=== PATIENT | male | born 1945 | race Caucasian/White ===

== ENCOUNTER 2024-07-18 11:11 | Emergency (ER) | payer OTHER, MEDICARE ==
[~2024-07-18] VITALS: Ht 182.9 cm; Wt 90.9 kg
--- NOTE | 2024-07-18 11:31 | ED.PDOC ---
SOB-HPI HPI Comments 78-year-old male presents with a chief complaint of SOB. Per EMS, patient normally saturates in the high 80s on room air, but his new home health nurse "panicked" and called 911. Patient states that he feels fine and at his baseline. Patient was sating at 89% on room air. Patient was given a dual nebulizer treatment en route. Patient is bed bound and has a colostomy bag in place. Patient is alert and oriented x 4. No other symptoms or modifying factors present at this time. pt is DNR and feels fine, but his daughter agrees to have him checked since the home health nurse called 911 Chief Complaint: Shortness of Breath Time Seen by MD: 11:16 Reviewed notes: Medications, Allergies Information Source: Patient, Emergency Med Personnel Mode of Arrival: EMS Severity: Moderate Timing: Hours Duration: Since onset Context: At Rest PE Risk Factors: None History of: Other (LUNG CANCER) Prehospital treatment: Breathing Tx, Ordnance Engineer, Oxygen Modifying Factors: Nothing Associated Signs and Symptoms: None Past Medical History PAST MEDICAL HISTORY: Cancer Surgical History (Other): COLOSTOMY Family History Family History: Reviewed,noncontributory to illness Social History Smoker: Non-Smoker Alcohol: Denies ETOH Use Drugs: Denies Drug Use Lives In: Home Constitutional: denies: chills, diaphoresis, fatigue, fever, malaise, sweats, weakness, others EENTM: denies: blurred vision, double vision, ear bleeding, ear discharge, ear drainage, ear pain, ear ringing, eye pain, eye redness, hearing loss, mouth pain, mouth swelling, nasal discharge, nose bleeding, nose congestion, nose pain, photophobia, tearing, throat pain, throat swelling, voice changes, others Respiratory: reports: shortness of breath; denies: cough, hemoptysis, orthopnea, SOB at rest, SOB with excertion, stridor, wheezing, others Cardiovascular: denies: chest pain, dizzy spells, diaphoresis, Dyspnea on exertion, edema, irregular heart beat, left arm pain, lightheadedness, palpitations, PND, syncope, others Gastrointestinal: denies: abdomen distended, abdominal pain, blood streaked bowels, constipated, diarrhea, dysphagia, difficulty swallowing, hematemesis, melena, nausea, poor appetite, poor fluid intake, rectal bleeding, rectal pain, vomiting, others Genitourinary: denies: burning, dysuria, flank pain, frequency, hematuria, incontinence, penile discharge, penile sore, pain, testicle pain, testicle swelling, urgency, others Neurological: denies: dizziness, fainting, headache, left sided numbness, left sided weakness, numbness, paresthesia, pre-existing deficit, right sided numbness, right sided weakness, seizure, speech problems, tingling, tremors, weakness, others Musculoskeletal: denies: back pain, gout, joint pain, joint swelling, muscle pain, muscle stiffness, neck pain, others Integumetry: denies: bruises, change in color, change in hair/nails, dryness, laceration, lesions, lumps, rash, wounds, others Allergic/Immunocompromised: denies: Difficulty Healing, Frequent Infections, Hives, Itching, others Hematologic/Lymphatic: denies: anemia, blood clots, easy bleeding, easy bruising, swollen glands, others Endocrine: denies: excessive hunger, excessive sweating, excessive thirst, excessive urination, flushing, intolerance to cold, intolerance to heat, unexplained weight gain, unexplained weight loss, others Psychiatric: denies: anxiety, bipolar disorder, depression, hopeless, panic disorder, schizophrenia, sleepless, suicidal, others All Other Systems: Reviewed and Negative Physical Exam General Appearance: No Apparent Distress, Obese HEENT: Normal ENT Inspection, Pharynx Normal, TMs Normal Neck: Full Range of Motion, Non-Tender, Normal, Normal Inspection Respiratory: Chest Non-Tender, Lungs Clear, No Accessory Muscle Use, No Respiratory Distress, Normal Breath Sounds Cardiovascular: No Edema, No JVD, No Murmur, No Gallop, Normal Peripheral Pulses, Regular Rate/Rhythm Breast Exam: Deferred Gastrointestinal: No Organomegaly, Non Tender, No Pulsatile Mass, Normal Bowel Sounds, Soft, Other (COLOSTOMY BAG IN PLACE WITH LIQUID BROWN STOOL) Genitalia: Deferred Pelvic: Deferred Rectal: Deferred Extremities: Leg edema (1+ Edema), Normal capillary refill, Normal inspection, Normal range of motion, Non-tender Musculoskeletal : Apperance: Normal Neurologic: Alert, director park II-XII nml as Tested, No Motor Deficits, Normal Affect, Normal Mood, No Sensory Deficits Cerebellar Function: Normal Reflexes: Normal Skin: Dry, Normal Color, Warm Lymphatic: No Adenopathy EKG EKG : Pulse Rate (adult): 91 [place]: Normal Cardiac Rhythm: NSR Block: None Hypertrophy: None ST: Nonsp Was a procedure done? Was a procedure done?: No Differential Dx Differential Diagnosis: Anxiety, Asthma, CHF, COPD, Hyperventilation, Myocardial infarction, Panic Attack, Pneumonia, Pneumothorax, Respiratory Distress, URI X-Ray, Labs, Meds, VS Vital Signs Date Time Temp Pulse Resp B/P (MAP) Pulse Ox O2 Delivery O2 Flow Rate FiO2 07/18/24 11:52 97.9 74 20 133/84 (100) 93 97.9 07/18/24 11:52 84 93 Nasal Cannula* 2 28 07/18/24 11:31 91 07/18/24 11:14 91 07/18/24 11:14 98.3 87 22 128/74 (92) 96 98.3 Lab Test 07/18/24 11:41 Range/Units White Blood Count 11.8 H 4.4-10.8 10^3/uL Red Blood Count 4.73 4.5-5.90 10^6/uL Hemoglobin 14.8 13.5-17.5 g/dL Hematocrit 44.6 41.0-53.0 % Mean Corpuscular Volume 94.2 80.0-100.0 fL Mean Corpuscular Hemoglobin 31.4 28.0-32.0 pg Mean Corpuscular Hemoglobin Concent 33.3 32.0-36.0 g/dL Red Cell Distribution Width 14.0 11.8-14.3 % Platelet Count 297 140-450 10^3/uL Mean Platelet Volume 8.4 6.9-10.8 fL Neutrophils (%) (Auto) 58.5 37.0-80.0 % Lymphocytes (%) (Auto) 20.9 10.0-50.0 % Monocytes (%) (Auto) 15.4 H 0.0-12.0 % Eosinophils (%) (Auto) 4.7 0.0-7.0 % Basophils (%) (Auto) 0.5 0.0-2.0 % Neutrophils # (Auto) 6.9 1.6-8.6 10 ^3/uL Lymphocytes # (Auto) 2.5 0.4-5.4 10 ^3/uL Monocytes # (Auto) 1.8 H 0-1.3 10 ^3/uL Eosinophils # (Auto) 0.6 0-0.8 10 ^3/uL Basophils # (Auto) 0.1 0-0.2 10 ^3/uL Nucleated Red Blood Cells 0.1 % Sodium Level 138 136-145 mmol/L Potassium Level 3.9 3.5-5.1 mmol/L Chloride Level 98 98-107 mmol/L Carbon Dioxide Level 32 H 20-31 mmol/L Anion Gap 8 5-15 Blood Urea Nitrogen 9 9-23 mg/dL Creatinine 0.80 0.700-1.30 mg/dL Glomerular Filtration Rate Calc 91 >90 mL/min BUN/Creatinine Ratio 11.3 10.0-20.0 Serum Glucose 98 74-106 mg/dL Calcium Level 9.9 8.7-10.4 mg/dL Troponin I High Sensitivity 7 </=54 ng/L Time of 1ST Reevaluation: 11:46 Reevaluation 1ST: Unchanged Time of 2ND Reevaluation: 12:47 Reevaluation 2ND: Unchanged Patient Education/Counseling: Diagnosis, Treatment, Prognosis, Need For Follow Up Family Education/Counseling: No Family Present Additional Information pt continues to deny any symptoms and informs me that his new nurse panicked because she is not aware that his O2 saturation is always in the 80% and he refuses O2. his workup is unremarkable. he is stable for discharge Departure 1 Departure Time of Disposition: 12:49 Impression: Primary Impression: Chronic respiratory failure Qualified Codes: J96.11 - Chronic respiratory failure with hypoxia Additional Impression: Palliative care patient Disposition: 01 HOME / SELF CARE / HOMELESS Condition: Good Discharged With: Self Critical Care Note Critical Care Time?: No Stability Stability form required: No Heart Score Heart Score: Heart Score Response (Comments) Value History N/A 0 EKG N/A 0 Age N/A 0 Risk Factors N/A 0 Troponin N/A 0 Total 0 I personally scribed for GONZALEZ WEISS MD ([email or web address]) on 07/18/24 at 11:31. Electronically submitted by Orion Terry ([email or web address]). GONZALEZ WEISS MD July 18, 2024 11:31
[2024-07-18 11:52] VITALS: BP 133/84; PULSE 84; RESP 20; TEMP 97.9; O2SAT 93
[2024-07-18 12:04] LABS: Basophils # (auto) 0.1 10 ^3/uL (0-0.2); Basophils % (auto) 0.5 % (0.0-2.0); Eosinophils # (auto) 0.6 10 ^3/uL (0-0.8); Eosinophils % (auto) 4.7 % (0.0-7.0); Hematocrit 44.6 % (41.0-53.0); Hemoglobin 14.8 g/dL (13.5-17.5); Lymphocytes # (auto) 2.5 10 ^3/uL (0.4-5.4); Lymphocytes % (auto) 20.9 % (10.0-50.0); Mean Corpuscular Hemoglobin 31.4 pg (28.0-32.0); Mean Corpuscular Hgb Conc. 33.3 g/dL (32.0-36.0); Mean Corpuscular Volume 94.2 fL (80.0-100.0); Monocytes # (auto) 1.8 10 ^3/uL (0-1.3); Monocytes % (auto) 15.4 % (0.0-12.0); Neutrophils # (auto) 6.9 10 ^3/uL (1.6-8.6); Neutrophils % (auto) 58.5 % (37.0-80.0); Nucleated Red Blood Cells % 0.1 %; Platelet Count (auto) 297 10^3/uL (140-450); Red Blood Cells 4.73 10^6/uL (4.5-5.90); White Blood Cell 11.8 10^3/uL (4.4-10.8)
[2024-07-18 12:13] LABS: Anion Gap 8 (5-15); Chloride 98 mmol/L (98-107); Potassium 3.9 mmol/L (3.5-5.1); Sodium 138 mmol/L (136-145)
[2024-07-18 12:14] LABS: Calcium 9.9 mg/dL (8.7-10.4)
--- NOTE | 2024-07-18 12:14 | DVH ---
XY CHEST PORTABLE, HISTORY: sob COMPARISON: None None TECHNICAL DATA: 1 view of the chest was obtained. FINDINGS: Lines and tubes: None Cardiomediastinal silhouette: prominent Pulmonary vasculature: normal Lung expansion: normal Lung airspace: normal Lung interstitium: normal Pleura: normal Pneumothorax: no Bones: Unremarkable Other: no IMPRESSION: No acute intrathoracic abnormality.
[2024-07-18 12:15] LABS: Carbon Dioxide 32 mmol/L (20-31)
[2024-07-18 12:19] LABS: BUN/Creatinine Ratio 11.3 (10.0-20.0); Blood Urea Nitrogen 9 mg/dL (9-23); Glucose 98 mg/dL (74-106)
[2024-07-18 14:10] LABS: Urine Bacteria MANY /hpf (None Seen); Urine Blood TRACE /uL (Negative); Urine Clarity Ex.Turbid (Clear); Urine Color Light-Orange (Yellow); Urine Mucus FEW (None Seen); Urine Protein, UAD Negative (Negative); Urine Specific Gravity 1.014 (1.001-1.035); Urine Squamous Epithelial Cell FEW /hpf (<5); Urine Urobilinogen Normal (Negative); Urine WBC 157 /HPF (0-3); Urine pH 5.5 (5.0-9.0)
--- NOTE | 2024-07-19 09:15 | ECG ---
[facility] Test Date: 2024-07-18 Test Time: 11:14:10 Pat Name: KRISTEN RAINEY Department: ED Room: Gender: M Firearms Instructor: brandan : 1945 Requested By: GONZALEZ WEISS Order Number: [id number] Reading MD: Measurements Intervals Sarita Rate: 91 P: -73 DC: 189 QRS: 227 QRSD: 121 T: 40 QT: 375 QTc: 462 Interpretive Statements Sinus or ectopic atrial rhythm Nonspecific intraventricular conduction delay Please click the below link to view image of tracing.
== END 2024-07-18 15:09 | disposition home or self-care (01) ==
LOC: EDBD 11:11 → ER 11:16
DX: J96.10 Chronic respiratory failure, unspecified whether with hypoxia or hypercapnia (principal); Z85.118 Personal history of other malignant neoplasm of bronchus and lung; Z93.3 Colostomy status
CPT/HCPCS: 36415; 71045; 80048; 81001; 84484; 85025; 93005